=== PATIENT | female | born 1960 | race Caucasian/White ===

== ENCOUNTER 2016-11-03 15:27 | Emergency (ER) | payer BC ==
[2012-10-03 10:24] VITALS: BMI 38.8
== END 2016-11-03 20:13 | disposition home or self-care (01) ==
LOC: D.ER 15:27
DX: M54.10 Radiculopathy, site unspecified (principal); I73.9 Peripheral vascular disease, unspecified; I10 Essential (primary) hypertension; I25.10 Atherosclerotic heart disease of native coronary artery without angina pectoris; K21.9 Gastro-esophageal reflux disease without esophagitis; F17.200 Nicotine dependence, unspecified, uncomplicated

== ENCOUNTER 2019-06-22 16:26 | Emergency (ER) | payer BC ==
[~2019-06-22] VITALS: Ht 167.6 cm; Wt 79.8 kg
[2019-06-22 17:04] VITALS: Ht 167.6 cm; Wt 79.8 kg
[2019-06-22] MEDS ORDERED: ZANTAC300 MG PO (17:10)
[2019-06-22] MEDS ORDERED: PLAVIX75 MG PO (17:10)
[2019-06-22] MEDS ORDERED: LIPITOR40 MG PO (17:10)
[2019-06-22] MEDS ORDERED: TRAZODONE HCL150 MG PO (17:10)
[2019-06-22] MEDS ORDERED: METOPROLOL TART50 MG PO (17:10)
[2019-06-22] MEDS ORDERED: LISINOPRIL20 MG PO (17:11)
[2019-06-22 20:00] VITALS: BP 198/70
== END 2019-06-22 20:00 | disposition home or self-care (01) ==
LOC: D.ER 16:26
DX: S81.811A Laceration without foreign body, right lower leg, initial encounter (principal); X58.XXXA Exposure to other specified factors, initial encounter

== ENCOUNTER → 2019-12-15 09:13 | Outpatient (CLI) | payer BC ==
[2019-06-22 17:04] VITALS: BMI 38.8
--- NOTE | ~2019-12-15 | ST ---
PATIENT:NELIA HAGEN MEDICAL RECORD: [id number] SEX: F LOCATION:[facility] ORDER #: ADMISSION DATE: 12/15/19 AGE OF PATIENT: 59 REFERRING PHYSICIAN: INTERPRETING PHYSICIAN: RADHA BARAJAS MD DATE OF SERVICE: 12/15/2019 PROCEDURE: Nuclear stress test. INDICATION: Angina, coronary artery disease, previous bypass surgery, shortness of breath, hypertension, and hyperlipidemia. The patient was exercised on standard Lexiscan protocol with 33 mCi of sestamibi injected at peak stress, 11 mCi used previously for rest images. FINDINGS: Gated SPECT reveals a depressed ejection fraction at 47% with decreased thickening and brightening throughout the anterior segments. SPECT imaging Cardiolite was used as myocardial perfusion agent. There is a mixed perfusion defect anteriorly. This is partially fixed, partially reversible. However, there is reversible ischemia laterally as well as reversible ischemia inferiorly. This includes the basal, mid, apical, inferior segments, apical lateral, mid lateral, basal lateral segments. OVERALL IMPRESSION: This is a high risk abnormal nuclear stress test, mixed perfusion defect anteriorly with reversible ischemia inferiorly as well as laterally suggestive of hemodynamically significant multivessel coronary artery disease. TRANSINT:[id number] Voice Confirmation ID: [id number] DOCUMENT ID: [id number] RADHA BARAJAS MD CC: FRANKLIN HORTON MD [id number] DICTATION DATE: 12/16/19918 ENGLISH AS A SECOND LANGUAGE INSTRUCTOR: 12/17/19622 DEP CLI 12/15/19 [facility] [address] [place] [address]
[~2019-12-15 09:13] MED LIST: LIPITOR40 MG PO; LISINOPRIL20 MG PO; METOPROLOL TART50 MG PO; PLAVIX75 MG PO; TRAZODONE HCL150 MG PO; ZANTAC300 MG PO
== END | disposition home or self-care (01) ==
LOC: D.HCCARDIO 09:13
PROVIDERS: ATTEND Internal Medicine Interventional Cardiology
DX: I25.709 Atherosclerosis of coronary artery bypass graft(s), unspecified, with unspecified angina pectoris (principal); I70.213 Atherosclerosis of native arteries of extremities with intermittent claudication, bilateral legs; I73.9 Peripheral vascular disease, unspecified

== ENCOUNTER 2019-12-21 08:58 | Outpatient (CLI) | payer MEDICAID ==
[~2019-12-21] VITALS: Ht 167.6 cm; Wt 72.7 kg
--- NOTE | ~2019-12-21 | HEMODYNAMI ---
PATIENT:NELIA HAGEN MEDICAL RECORD: [id number] : 58 LOCATION:[facility] ADMISSION DATE: 12/21/19 Generatedon:12/21/201912:02 Patient name: NELIA HAGEN Patient #: [id number] : 1960 Date of study: 12/21/2019 Page: Of Hemodynamic Procedure Report Patient Data Patient Demographics Procedure consent was obtained First Name: NELIA Gender: Female Last Name: IHEU : 1960 Middle Initial: H Age: 59 year(s) Patient #: [id number] Race: SSN: [id number] Additional ID: [id number] Contact details [address]: [address] [place] [address] State: [place] City: [place] Zip code: [address] Admission Admission Data Admission Date: 12/21/2019 Admission Time: 8:58 Arrival Date: 12/21/2019 Arrival Time: 11:00 Admit Source: Other Insurance Payor: Private health insurance [facility] #: [phone] Height (in.): 65.75 BSA: 1.81 (m2) Height (cm.): 167 BMI: 25.82 (kg/m2) Weight (lbs.): 158.73 Weight (kg.): 72 Lab Results Lab Result Date: 12/21/2019 Lab Result Time: 0:00 Biochemistry Name Units Result Min Max BUN mg/dl 14 --(--*-)-- 7 18 Creatinine mg/dl 0.7 --(*---)-- 0.6 1.3 eGFR ml/min 90 --(*---)-- 90 120 NONAFRICAN CBC Name Units Result Min Max Hemoglobin g/dl 14 --(*---)-- 13.5 17.5 Procedure Procedure Types Cath Procedure Diagnostic Procedure LHC LHC w/Coronaries w/Grafts Sedation Charges Moderate Sedation up to 15 minutes Peripheral Cath Diagnostic Procedure Billboard Poster Peripheral Procedures AFRO (Diagnostic) Four Vessel Arteriogram Procedure Description Procedure Date Procedure Date: 12/21/2019 Procedure Start Time: 11:44 Procedure End Time: 11:57 Procedure Staff Name Function Héctor Jimenez MD Performing Physician Ayana Monsivais RT Monitor Josselyn Stevenson RT Scrub Liliya Andrea RN Metal Roaster Aide Contreras RN Metal Roaster Procedure Data Cath Procedure Fluoroscopy Diagnostic fluoroscopy Total fluoroscopy Time: 4.9 time: 4.9 min min Diagnostic fluoroscopy Total fluoroscopy dose: 406 dose: 406 mGy mGy Contrast Material Contrast Material Type Amount (ml) Isovue 300 129 Entry Location Entry Primary Successful Side Size Upsize Upsize Entry Closure Succes sful Closure Location (Fr) 1 (Fr) 2 (Fr) Remarks Device Remarks Femoral Right 5 Fr Exoseal artery Estimated blood loss: 5 ml Diagnostic catheters Device Type Used For End Catheter Placement MULTIPACK Pigtail 5 Fr Multi-vessel catheter Angiography MULTIPACK JL 4.0 5Fr Left Coronary catheter Angiography MULTIPACK 3DRC 5Fr Multi-vessel catheter Angiography DIAGNOSTIC AR2 MOD 5 Fr Multi-vessel catheter ([id number]) Angiography Procedure Complications No complications Procedure Medications Medication Administration Route Dosage Oxygen etCO2 Nasal cannula 2 l/min Lidocaine 2% added to field 20 Heparin Flush Bag added to field 2 bags (1000units/500ml NS) 0.9% NaCl I.V. 100 ml/hr Versed I.V. 1 mg Versed I.V. 1 mg Fentanyl I.V. 50 mcg Fentanyl I.V. 50 mcg Hemodynamics Rest BSA: 1.81 (m2) HGB: 14 (g/dl) O2 Consumption: Estimated: 169.58 (ml/min) O2 Cons umption indexed: Estimated:93.69 (ml/min/m) Heart Rate: 67 (bpm) Pressure Samples Time Site Value (mmHg) Purpose Heart Use Rate(bpm) 11:47 LV 100/4,7 Snapshot 66 Snapshots Pre Cath Intra NCS Post Cath Vital Signs Time Heart Resp SPO2 etCO2 NIBP (mmHg) Rhythm Pain Sedation Rate (ipm) (%) (mmHg) Status Level (bpm) 11:28:01 66 35 100 28.8 172/84(140) NSR 0 (11) 10(A) , No pain 11:32:23 66 16 99 36.3 137/71(114) NSR 0 (11) 10(A) , No pain 11:36:41 64 13 97 37.8 112/56(84) NSR 0 (11) 9(A) , No pain 11:40:52 63 13 97 37.9 96/55(82) NSR 0 (11) 9(A) , No pain 11:45:58 57 11 98 12.1 109/52(67) NSR 0 (11) 9(A) , No pain 11:50:10 55 13 98 23.4 109/48(78) NSR 0 (11) 9(A) , No pain 11:54:21 56 12 99 26.5 107/49(79) NSR 0 (11) 10(A) , No pain Medications Time Medication Route Dose Verified Delivered Reason Notes Eff ectiveness by by 11:26:53 Oxygen etCO2 2 Héctor Héctor used for Nasal l/min Barbara Jimenez MD procedure cannula 11:27:57 Lidocaine 2% added 20ml Héctor Héctor for local to vial Barbara Jimenez MD anesthetic field 11:28:02 Heparin Flush added 2 Héctor Héctor used for Bag to bags Barbara Jimenez MD procedure (1000units/500ml field NS) 11:28:36 0.9% NaCl I.V. 100 Héctor Liliya Per ml/hr Barbara Andrea physician RN 11:32:28 Versed I.V. 1 mg Héctor Noble for Barbara Contreras RN sedation 11:32:35 Fentanyl I.V. 50 Héctor Donovanie for mcg Barbara Contreras RN sedation 11:51:29 Versed I.V. 1 mg Héctorjudy Noble for Barbara Contreras RN sedation 11:51:35 Fentanyl I.V. 50 Héctor Noble for mcg Barbara Contreras RN sedation Procedure Log Time Note 11:20:40 Diagnostic Cath Status : Elective 11:23:20 Informed consent obtained and on chart 11:24:29 Admit Source: Other 11:24:31 Arrival Date: 12/21/2019 11:00:00 AM 11:24:41 ACC Patient presents with Stable Angina CCS Anginal Class 2--Slight limitation of ordinary activity. 11:24:44 ACCPatient has been prescribed/administered the following anti-anginal medication within the last 2 weeks: None 11:24:50 Procedure Status Elective Heart Cath (OP). 11:24:55 Josselyn Stevenson RT(R) sent for patient. Start room use. 11:24:56 Time tracking: Regular hours (M-F 7:00 - 5:00) 11:25:03 Plan of Care:Hemodynamics will remain stable., Cardiac rhythm will remain stable., Comfort level will be maintained., Respiratory function will remain adequate., Patient/ family verbilizes understanding of procedure., Procedure tolerated without complication., Recovers from procedure without complications.. 11:25:18 Insurance Payor : Private health insurance 11:25:48 Patient Height : 65.75 inches 11::53 Patient Weight : 158.73 lbs 11::34 Lab Result : eGFR NONAFRICAN 90 ml/min 11::34 Lab Result : Hemoglobin 14 g/dl 11::34 Lab Result : BUN 14 mg/dl 11::34 Lab Result : Creatinine 0.7 mg/dl 11::44 Vital chart was started 11:26:45 Patient received from Pre/Post Procedure Room to [facility] 2 Alert and oriented. Tansferred to table in Supine position. 11:26:46 Warm blankets applied, and gigi hugger turned on for patient comfort. 11:26:46 Correct patient and procedure confirmed by team. 11:26:47 ECG and BP/O2 sat monitors applied to patient. 11::49 Baseline sample Acquired. 11::53 Oxygen 2 l/min etCO2 Nasal cannula was administered by Héctor Jimenez MD; used for procedure; Verbal order read back and verified. 11::55 Rhythm: sinus rhythm 11:26:57 Full Disclosure recording started 11::01 H&P Date Dictated: 12/21/2019 Within 30 days and on chart., H&P Addendum completed by physician on day of procedure. (MUST COMPLETE FOR ALL OUTPATIENTS). 11:27:02 Pre-procedure instructions explained to patient. 11:27:03 Pre-op teaching completed and patient verbalized understanding. 11:27:05 Family in patients room. 11:27:06 Patient NPO since Midnight. 11:27:08 Is the patient allergic to Iodine/contrast media? No. 11:27:10 Was the patient premedicated? Yes 11:27:11 Is patient on blood thinner?Yes 11:27:39 ACC The patient was administered the following blood thiners within the last 24 hours: ACCPlavix 11:27:41 Patient diabetic? Yes. 11:27:43 If diabetic: On Metformin? Yes 11:27:50 If on Metformin: Last Dose? 12/12/2019 11:27:55 Previous problem with sedation/anesthesia? No ? 11:27:57 Lidocaine 2% 20ml vial added to field was administered by Héctor Jimenez MD; for local anesthetic; Verbal order read back and verified. 11:27:57 Snore? Yes 11:27:57 Sleep apnea? Yes 11:27:58 Deviated septum? No 11:27:59 Opens mouth fully? Yes 11:27:59 Sticks out tongue? Yes 11:28:02 Heparin Flush Bag (1000units/500ml NS) 2 bags added to field was administered by Héctor Jimenez MD; used for procedure; Verbal order read back and verified. 11:28:08 Airway obstruction? No ? 11:28:17 Dentures? No ? 11:28:21 Pre procedure: right dorsailis pedis pulse 2+ Normal; easily identifiable; not easily obliterated 11:28:25 Pre procedure: left dorsailis pedis pulse 2+ Normal; easily identifiable; not easily obliterated 11:28:27 Patient pain scale 0/10 ?. 11:28:32 IV patent on arrival in left forearm with 0.9% NaCl at [facility]. 11:28:35 Lab results completed and on chart. 11:28:36 0.9% NaCl 100 ml/hr I.V. was administered by Liliya Andrea RN; Per physician; Verbal order read back and verified. 11:31:36 Risk of Mortality: 0.1 11:31:39 Risk of blood transfusion: 0.6 11:31:42 Risk of DAHLIA: 0.1 11:31:49 Bilateral groins area was prepped with chlora-prep and draped in sterile fashion 11::50 Alarms reviewed by R. N. 11:31:50 Sharps counted by scrub and verified by R.N. 11:31:51 Physician arrived 11:31:52 --------ALL STOP TIME OUT------ 11::52 Final Timeout: patient, procedure, and site verified with staff and physician. All members of the team are in agreement. 11:31:54 Bilateral groins site verified by team. 11:31:58 Fire Safety Assessment: A--An alcohol-based skin anteseptic being used preoperatively., C--Open oxygen or nitrous oxide is being used., D--An ESU, laser, or fiber-optic light is being used. 11:32:01 Physical assessment completed. ASA score P 2 - A patient with mild systemic disease as per Héctor Jimenez MD. 11:32:28 Versed 1 mg I.V. was administered by Aide Contreras RN; for sedation; Verbal order read back and verified. 11:32:35 Fentanyl 50 mcg I.V. was administered by Aide Contreras RN; for sedation; Verbal order read back and verified. 11:32:44 1) 90+ Normal kidney functon but urine findings or structural abnormalities or genetic trait point to kidney disease. 11:32:47 Maximum allowable contrast dose (3.7 X eGFR X 0.75)249 ml. 11:32:51 Sedation plan: IV Moderate Sedation Medication:Versed, Fentanyl 11:33:00 Use device set Femoral Dx 11:33:02 ACIST Syringe (43934) opened to sterile field. 11:33:02 Bag Decanter (2002S) opened to sterile field. 11:33:02 Medline Cath Pack ([id number]) opened to sterile field. 11:33:04 ACIST Hand Control (26565) opened to sterile field. 11:33:04 ACIST Manifold (72292) opened to sterile field. 11:33:04 DIAGNOSTIC Multipack 5Fr catheter set ([id number]) opened to sterile field. 11:33:05 Tegaderm 4 x 4 (1626W) opened to sterile field. 11:33:06 SHEATH 5FR Peach Bottom (JMV082) opened to sterile field. 11:33:06 EMERALD Guide Wire (668-551) opened to sterile field. 11:41:36 Procedure started. 11:44:04 Local anesthetic to right femoral artery with Lidocaine 2% by Héctor Jimenez MD.INITIAL ACCESS ONLY 11:44:27 A 5 Fr sheath was inserted into the Right Femoral artery 11:45:39 Zero performed for pressure channel P1 11:46:28 A MULTIPACK Pigtail 5 Fr catheter was advanced over the wire and used for Multi-vessel Angiography. 11:47:15 LV hemodynamics recorded. 11:47:17 LV gram done using ANGELES 11:47:19 Injector settings: Ml/sec: 5, Volume: 15, 11:47:26 EF : 60 % 11:47:36 Abdominal angiogram w/ runoff was performed. 11:47:42 Injector settings: Ml/sec: 10, Volume: 20, 11:49:08 Catheter removed. 11:49:17 A MULTIPACK JL 4.0 5Fr catheter was advanced over the wire and used for Left Coronary Angiography. 11:49:34 LCA angiography performed. 11:49:37 Injector settings: Ml/sec: 3, Volume: 6, 11:50:03 Catheter removed. 11:50:10 A MULTIPACK 3DRC 5Fr catheter was advanced over the wire and used for Multi-vessel Angiography. 11:50:44 Bilateral carotid angiography performed. 11:51:29 Versed 1 mg I.V. was administered by Aide Contreras RN; for sedation; Verbal order read back and verified. 11:51:35 Fentanyl 50 mcg I.V. was administered by Aide Contreras RN; for sedation; Verbal order read back and verified. 11:52:05 AMES to LAD angiography performed. 11:52:56 RCA angiography performed. 11:52:59 Injector settings: Ml/sec: 3, Volume: 6, 11:53:07 Catheter removed. 11:53:17 A DIAGNOSTIC AR2 MOD 5 Fr catheter ([id number]) was advanced over the wire and used for Multi-vessel Angiography. 11:54:32 SVG to Circ angiography performed. 11:55:10 Catheter removed. 11:55:15 EXOSEAL 5Fr (EX500) opened to sterile field. 11:55:40 Sheath removed intact; hemostasis achieved with Exoseal to the Right Femoral artery. 11:55:42 Procedure ended.(Physican Out) 11:56:01 Fluoroscopy time 04.90 minutes. 11:56:24 Fluoroscopy dose: 406 mGy 11:56:24 Flurop Dose total: 406 11:56:28 Dose Area Product 18894 mGy/cm. 11:56:34 Contrast amount:Isovue 300 129ml. 11:56:37 Maximum allowable dose exceeded? No. 11:56:39 Insertion/operative site no bleeding no hematoma. 11:56:41 Post-op/insertion site Right Femoral artery dressed using a 4 x 4 and Tegaderm. 11:56:44 Post right femoral artery:stable 11:56:45 Post Procedure Pulses reassessed and unchanged 11:56:48 Post procedure rhythm: unchanged. 11:56:52 Estimated blood loss: 5 ml 11:56:54 Post procedure instruction explained to patient.Patient verbalizes understanding. 11:56:54 Patient needs reinforcement of post procedure teaching. 11:57:21 Procedure type changed to Cath procedure, Diagnostic procedure, LHC, LHC w/Coronaries w/Grafts, Sedation Charges, Moderate Sedation up to 15 minutes, Peripheral Cath Diagnostic Procedure, Billboard Poster Peripheral Procedures, AFRO (Diagnostic), Four Vessel Arteriogram 11:57:22 Procedure and supply charges have been captured, reviewed, submitted and are correct. 11:57:27 Procedure Complication : No complications 11:57:30 Vital chart was stopped 11:57:35 [facility] Findings: MVD- MD will discuss options w/ pt 11:57:36 Operative report dictated upon procedure completion. 11:57:37 See physician's report for complete and final results. 11:57:41 Report given to Pre/Post Procedure Room. 11:57:43 Patient transfered to Pre/Post Procedure Room with Stretcher. 11:57:47 Procedure ended. 11:57:47 Full Disclosure recording stopped 11:57:58 End room use (Document Last) Device Usage Item Name Manufacture Quantity Catalog Hospital Part Current Minimal L ot# / Number Charge Number Stock Stock Serial# Code ACIST Acist 1 73570 666643 991229 322028 20 Syringe Medical (01602) Systems Inc Bag Microtek 1 138558 27503 491706 5 Decanter Medical Inc. () Medline Medline 1 [id number] 808867 95970 321884 5 Cath Pack ([id number]) ACIST Hand Acist 1 75251 008308 429386 121304 5 Control Medical (28671) Systems Inc ACIST Acist 1 70799 054180 725947 775941 5 Manifold Medical (28732) Systems Inc DIAGNOSTIC Cardinal 1 UY2186 784942 22402 501907 30 [facility] 5Fr catheter set (GU6009) Tegaderm 4 3M 1 1626W 886579 656589 071242 5 x 4 (1626W) SHEATH 5FR Terumo 1 XFV848 310219 113152 684833 5 Peach Bottom (WYE518) EMERALD Cardinal 1 293-121 656425 276772 887833 5 Guide Wire Health (505-868) MULTIPACK Cardinal 1 765019 5 Pigtail 5 Health Fr catheter MULTIPACK Cardinal 1 005537 5 JL 4.0 5Fr Health catheter MULTIPACK Cardinal 1 028409 5 3DRC 5Fr Health catheter DIAGNOSTIC Cardinal 1 [id number] 495526 902063 278848 20 AR2 MOD 5 Health Fr catheter (923202H) EXOSEAL 5Fr Cardinal 1 EX500 795514 782848 521363 10 (EX500) Health Signature Audit [place] Stage Time Signature Unsigned Intra-Procedure 12/21/2019 Ayana Monsivais 12:01:19 PM RT(R) Intra-Procedure 12/21/2019 Aide Contreras RN 12:01:55 PM Intra-Procedure 12/21/2019 Héctor Jimenez 12:02:20 PM Signatures Performing Physician : Signature : Héctor Jimenez MD Date : Time : Monitor : Ayana Monsivais RT Signature : Date : Time : [address] [address]
--- NOTE | ~2019-12-21 | OP ---
PATIENT NAME: NELIA HAGEN MEDICAL RECORD: [id number] :58 LOCATION:[facility] ADMISSION DATE: SURGEON: RADHA BARAJAS MD DATE OF OPERATION: 12/21/2019 DATE OF SERVICE: 12/21/2019 PROCEDURES: 1. Left heart catheterization. 2. Selective coronary angiography. 3. Left ventriculogram. 4. Vein graft angiography. 5. AMES angiography. 6. Four-vessel carotid and vertebral angiography. 7. Aortofemoral runoff. 8. Abdominal aortography. PROCEDURE IN DETAIL: After informed consent was obtained and after a detailed description of risks, benefits as well as alternative therapies, the patient elected proceed with angiogram and heart catheterization. The right femoral area was prepped and draped in normal sterile fashion. Right femoral artery was cannulated via modified Seldinger technique with placement of 6-Estonian sheath. All catheters exchanged through this sheath. FINDINGS: Left ventriculogram was performed in standard 30-degree ANGELES view, reveals good cardiac wall motion, ejection fraction is 60%. SELECTIVE CORONARY ANGIOGRAPHY: 1. Left main is closed. 2. Right coronary artery is closed. 3. AMES to the LAD is widely patent. Distal LAD is widely patent. 4. Vein graft to the circumflex territory is patent. Distal circumflex is widely patent. 5. Vein graft to the RCA is closed. 6. Four-vessel carotid vertebral angiography. There was subselection of each subclavian as well as the left carotid. FINDINGS: Right side common internal and external carotids have mild plaquing. There is evidence of a previous carotid endarterectomy. This appears to be widely patent. The vertebral artery is as well widely patent. Left system; 1. The common carotid is widely patent. External carotid is widely patent. The internal carotid has 95-99% stenosis. 2. Vertebral artery is patent. Abdominal aortography was performed. The catheter was pulled down for aortofemoral runoff. Abdominal angiography reveals no significant abdominal aortic disease, no dissection or aneurysmal formation. RIGHT LEG: A. Iliac: The common internal and external iliacs are widely patent. B. Femoral system: The common and deep femoral are widely patent. Superficial femoral was totally occluded. There is a femoral popliteal bypass graft that is widely patent. Below the knee arteries are patent; however, diffusely diseased. OPERATIVE REPORT [id number] NELIA HAGEN LEFT LEG: A. Iliac: The common internal and external iliacs are widely patent. B. Femoral system: The common and deep femoral are widely patent. Superficial femoral was totally occluded. There is a femoral popliteal bypass graft that is widely patent. Below the knee arteries are patent; however, diffusely diseased. OVERALL IMPRESSION: 1. 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 2. Carotid endarterectomy on the right appears patent. The left system has critical stenosis of the left carotid. 3. Wide patency of femoral popliteal bypass grafts bilaterally with diffuse disease below this bilaterally. TRANSINT:[id number] Voice Confirmation ID: [id number] DOCUMENT ID: [id number] RADHA BARAJAS MD CC: [id number] DICTATION DATE: 12/21/19 1204 VIDEO GAME ENGINEER: 12/21/19 1723 DEP CLI 12/21/19 [facility] [address] [place] [address]
[2019-12-21] MEDS ORDERED: RANITIDINE HCL150 M1 PO (09:28)
[2019-12-21] MEDS ORDERED: GLUCOPHAGE500 MG PO (09:30)
[2019-12-21] MEDS ORDERED: CRESTOR40 MG PO (09:31)
[2019-12-21] MEDS ORDERED: ASPIRIN325 MG PO (09:31)
[2019-12-21 10:11] LABS: BASOPHILS 0.2 % (0-2); EOSINOPHILS 2.1 % (0-7); HEMATOCRIT 41.9 % (36.0-48.0); IMMATURE GRANULOCYTES 0.1 % (0-5); LYMPHOCYTES 28.6 % (15-50); MCH 29.8 pg (26.0-34.0); MCHC 33.4 g/dL (31.0-37.0); MCV 89.1 fL (80.0-100.0); MEAN PLATELET VOLUME 10.8 fL (7.4-10.4); MONOCYTES 6.3 % (2-11); NEUTROPHILS 62.7 % (40-80); PLATELET COUNT 227 10x3/uL (130-400); RDW 14.7 % (11.5-14.5); WBC 8.3 10x3/uL (4.8-10.8)
[2019-12-21 10:14] VITALS: BP 171/69; Ht 167.6 cm; Wt 72.7 kg
[2019-12-21 10:16] LABS: CALC OSMOLALITY 279 mosm/kg (275-300); CALCIUM 9.6 mg/dL (8.5-10.1); CARBON DIOXIDE 29.5 mmol/L (21.0-32.0); CHLORIDE - SERUM 104 mmol/L (98-107); CREATININE - SERUM 0.7 mg/dL (0.6-1.3); GLUCOSE 97 mg/dL (74-106); POTASSIUM - SERUM 4.3 mmol/L (3.5-5.1); SODIUM 140 mmol/L (136-145); UREA NITROGEN 14 mg/dL (7-18); eGFR NON AFRICAN AMERICAN 90 mL/min (90-120)
--- NOTE | 2019-12-21 12:08 | NUR ---
PT ARRIVED BY STRETCHER. PLACED ON MONITORS. ASSESSMENT COMPLETED. FAMILY AT BEDSIDE. CALL LIGHT WITHIN REACH.
--- NOTE | 2019-12-21 12:27 | NUR ---
RIGHT GROIN DRESSING C/D/I. NO S/S OF HEMATOMA NOTED. CALL LIGHT WITHIN REACH. FAMILY AT BEDSIDE. DR. BARAJAS ROUNDED AND SPOKE WITH PT AND PT'S FAMILY. THEY VOICED UNDERSTANDING. SPOKE WITH ARIANE SEQUEIRA AND NOTIFIED HER OF CV CONSULT.
--- NOTE | 2019-12-21 12:53 | NUR ---
R GROIN SOFT, NO S/S BLEEDING OR HEMATOMA. APPEARS TO HAVE A SKIN TEAR TO SKIN FOLDOF GROIN. PPP. FAMILY AT BEDSIDE. BP 168/70, SR OCC PVC RATE 60, RR 18, 97% SAT.
--- NOTE | 2019-12-21 13:04 | NUR ---
HOB RAISED FOR PT COMFORT. GROIN REMAINS CDI, SOFT. NO S/S BLEEDING OR HEMATOMA.
--- NOTE | 2019-12-21 13:30 | NUR ---
R GROIN SOFT, NO S/S BLEEDING OR HEMATOMA. IV DC TIP INTACT, MONITORING DC. PT DRESSING WITH FAMILY'S HELP.
--- NOTE | 2019-12-21 14:05 | NUR ---
DISCHARGE INSTRUCTIONS REVIEWED W PT AND FAMILY. AWAITING DR AMBROSIO TO EVAL L CAROTID STENOSIS PER DR BARAJAS.
--- NOTE | 2019-12-21 14:30 | NUR ---
DR VEGA AND MARQUES MATA RN HERE FOR [facility]. SPOKE W PT, DR VEGA STATED L CAROTID STENOSIS NOT URGENT AND FABBY WILL SET UP APPT WITH DR AMBROSIO AND CALL PT/FAMILY. ALL VERBALIZE UNDERSTANDING. DC HOME VIA WHEELCHAIR TO PRIVATE CAR. PT HAS ALL BELONGINGS.
== END 2019-12-21 14:30 | disposition home or self-care (01) ==
LOC: D.CATH 08:58
PROVIDERS: ATTEND Internal Medicine Interventional Cardiology
DX: R07.9 Chest pain, unspecified (principal); I10 Essential (primary) hypertension; E78.5 Hyperlipidemia, unspecified; F17.210 Nicotine dependence, cigarettes, uncomplicated; I25.119 Atherosclerotic heart disease of native coronary artery with unspecified angina pectoris; I65.29 Occlusion and stenosis of unspecified carotid artery; I70.213 Atherosclerosis of native arteries of extremities with intermittent claudication, bilateral legs; R94.30 Abnormal result of cardiovascular function study, unspecified

== ENCOUNTER → 2020-02-22 15:14 | Outpatient (CLI) | payer MEDICAID ==
[2019-12-21 10:14] VITALS: BMI 25.8
[~2020-02-22 15:14] MED LIST changes: +ASPIRIN325 MG PO; +CATAPRES0.1 MG PO; +CRESTOR40 MG PO; +GLUCOPHAGE500 MG PO; +NITRO-DUR0.6 MG TRANSDERM; +RANITIDINE HCL150 M1 PO
== END | disposition home or self-care (01) ==
LOC: D.RAD 15:14
PROVIDERS: ATTEND Internal Medicine Cardiovascular Disease
DX: I65.22 Occlusion and stenosis of left carotid artery (principal)

== ENCOUNTER 2020-02-22 15:30 | Inpatient (IN) | payer MEDICAID ==
[~2020-02-22] VITALS: Ht 167.6 cm; Wt 83.2 kg
[~2020-02-22 15:30] MED LIST changes: -CATAPRES0.1 MG PO; -NITRO-DUR0.6 MG TRANSDERM
[2020-02-22 15:44] LABS: HEMOGLOBIN 13.5 g/dL (12-16); MCH 28.9 pg (26.0-34.0); MCHC 31.4 g/dL (31.0-37.0); MCV 92.1 fL (80.0-100.0); MEAN PLATELET VOLUME 11.1 fL (7.4-10.4); RBC 4.67 10x6/uL (4.00-5.40); RDW 13.8 % (11.5-14.5); WBC 8.2 10x3/uL (4.8-10.8)
[2020-02-22 15:59] LABS: BILIRUBIN NEGATIVE (NEGATIVE); GLUCOSE NEGATIVE (NEGATIVE); KETONE NEGATIVE (NEGATIVE); NITRITE NEGATIVE (NEGATIVE); UROBILINOGEN NORMAL (NORMAL)
[2020-02-22 16:04] LABS: APTT 31.2 SECONDS (22.8-39.4); INR 0.95 (0.85-1.17); PROTIME 12.7 SECONDS (11.6-15.0)
[2020-02-22 16:15] LABS: ALBUMIN 4.1 g/dL (3.4-5.0); ALKALINE PHOSPHATASE 67 U/L (30-120); ALT (SGPT) 22 U/L (10-68); CALC OSMOLALITY 278 mosm/kg (275-300); CALCIUM 9.4 mg/dL (8.5-10.1); CARBON DIOXIDE 28.7 mmol/L (21.0-32.0); CHLORIDE - SERUM 102 mmol/L (98-107); CREATININE - SERUM 0.5 mg/dL (0.6-1.3); GLUCOSE 91 mg/dL (74-106); POTASSIUM - SERUM 4.5 mmol/L (3.5-5.1); PROTEIN - SERUM 7.7 g/dL (6.4-8.2); SODIUM 139 mmol/L (136-145); UREA NITROGEN 15 mg/dL (7-18); eGFR NON AFRICAN AMERICAN > 90 mL/min (90-120)
[2020-02-23] VITALS (35 sets, daily range): BP systolic 108–167; BP diastolic 49–65; Ht 167.6 cm; Wt 83.2 kg
--- NOTE | 2020-02-23 17:15 | NUR ---
ARRIVED TO UNIT AT 1700 VIA BED. CONNECTED TO LAMP TESTER AND INSPECTOR. LEFT ANTERIOR NECK INCISION WITH DRESSING C/D/I. KRYSTLE CHEST CHRISTIAN DRAIN IN PLACE WITH BLOODY DRAINAGE NOTED. ON 15L O2 VIA SYMPLE MASK. R-SUB CVL WITH PLASMOLYTE, NITROGLYCERIN AND CLEVIPREX. SEE IV FLOWSHEET FOR RATES. LEFT RADIAL NITHIN IN PLACE. HARRELL CATHETER WIHT YELLOW URINE NOTED. TEDS AND SCD'S ON BLE. SAFETY MEASURES IN PLACE. WILL CONTINUE TO MONITOR.
--- NOTE | 2020-02-23 19:00 | NUR ---
SHIFT ASSESSMENT COMPLETED. PT CARE ASSUMED. MONITORS ON AND WORKING, PT AWAKE AND ALERT, HARRELL CATH STAT LOCKED IN PLACE, LT RADIAL ART LINE WITH WRIST PROTECTOR IN PLACE, ICE PACK PLACED ON LEFT NECK, CHRISTIAN DRAIN TO LEFT CHEST DRESSING CDI. SEE FLOW SHEET FOR FURTHER DETAILS. CALL LIGHT WITHIN REACH. WILL CONTINUE TO OBSERVE.
--- NOTE | 2020-02-23 21:00 | NUR ---
PT AWAKE AND ALERT, PT DENIES ANY COMPLAINT OF PAIN OR DISCOMFORT AT THIS TIME, ICE PACK TO LEFT NECK, MONITORS ON AND WORKING, TITRATING NITRO AND CLEVIPREX PER ORDERS TO KEEP BP WITHIN TARGET RANGE. CALL LIGHT WITHIN REACH, WILL CONTINUE TO OBSERVE.
--- NOTE | 2020-02-23 22:00 | NUR ---
REC'D PHONE CALLS FROM NIECE AND SON, BOTH GAVE PASSCODES AND UPDATES WERE PROVIDED.
--- NOTE | 2020-02-23 23:00 | NUR ---
PT LYING IN BED RESTING. MONITORS ON AND WORKING, TITRATING NITRO AND CLEVIPREX TO KEEP BP BETWEEN 90-140 SYSTOLIC, NOT ABLE TO GO DOWN ON EITHER DRIP AT THIS TIME, SEE FLOW SHEET FOR FURTHER DETAILS. WILL CONTINUE TO OBSERVE.
[2020-02-24] VITALS (91 sets, daily range): BP systolic 112–161; BP diastolic 50–77
--- NOTE | 2020-02-24 01:00 | NUR ---
NO CHANGES, CALL LIGHT WITHIN REACH. WILL CONTINUE TO OBSERVE.
--- NOTE | 2020-02-24 02:00 | NUR ---
PT TURNED AND REPOSITIONED FOR COMFORT. IS DONE EVERY HR, PT TOLERATES WELL. CALL LIGHT WITHIN REACH, PT DENIES ANY COMPLAINT OF PAIN OR DISCOMFORT, UNABLE TO WEAN DRIPS AT THIS TIME BLOOD PRESSURE REMAINS IN THE HIGH 130S. WILL CONTINUE TO OBSERVE.
--- NOTE | 2020-02-24 03:00 | NUR ---
PT LYING IN BED RESTING. MONITORS ON AND WORKING, VITALS STABLE, CALL LIGHT WITHIN REACH, SEE FLOW SHEET FOR FURTHER DETAILS. WILL CONTINUE TO OBSERVE.
--- NOTE | 2020-02-24 05:00 | NUR ---
PT BP REMAINS IN THE 130'S SYSTOLIC PER ART LINE. NITRO AND CLEVIPREX INFUSING. PT AWAKE AND ALERT, PT DENIES ANY COMPLAINT OF PAIN OR DISCOMFORT. PT TURNED AND REPOSITIONED FOR COMFORT, MONITORS ON AND WORKING, CALL LIGHT WITHIN REACH, WILL CONTINUE TO OBSERVE.
--- NOTE | 2020-02-24 06:45 | NUR ---
PT HEART RATE INCREASED TO 115 ON MONITOR AT SHIFT CHANGE, PT WAS ON HOME MEDS LOPRESSOR AND LISINOPRIL WHICH HAS NOT BEEN RESTARTED YET. REVIEWED WITH ONCOMING NURSE AT THIS TIME AND MD WAS PAGED. PT AWAKE AND ALERT, DENIES ANY COMPLAINT OF PAIN OR DISCOMFORT, WILL CONTINUE TO OBSERVE AND WAIT FOR FURTHER ORDERS.
--- NOTE | 2020-02-24 07:35 | NUR ---
AM ASSESSMENT COMPLETED. HR IN THE 120'S WAS GIVEN IN REPORT THAT STARTED INCREASING ABOUT 6:30 OR 6:45. DR. AMBROSIO NOTIFIED. NEW ORDERS OF LOPRESSOR ORDERED. PT DENIES PAIN PT POSITIONED FOR COMFORT. WILL CONTINUE TO MONITOR.
--- NOTE | 2020-02-24 10:40 | NUR ---
HARRELL AND A-LINE REMOVED PER ORDERS FROM . PT AT BEDSIDE PT UP TO CHAIR POSITIONED FOR COMFORT. WEANING MEDS.
--- NOTE | 2020-02-24 19:00 | NUR ---
REPORT REC'D FROM CHEY MURPHY, PT CARE ASSUMED. ASSESSMENT COMPLETED PER FLOWSHEETS.
--- NOTE | 2020-02-24 20:15 | NUR ---
SON CALLED FOR UPDATE. UPDATED AND QUESTIONS ANSWERED.
--- NOTE | 2020-02-24 20:20 | NUR ---
ASSISSTED TO BATHROOM. PT VOIDS WITHOUT DIFFIC. AVILA WELL. BACK TO BED. REPOSIIONED SELF FOR COMFORT. HOB UP. CALL LIGHT AND BEDSIDE TABLE WITHIN REACH. CPOC.
--- NOTE | 2020-02-24 20:50 | NUR ---
ASSESSMENT COMPLETED PER FLOWSHEETS. PT ALERT AND ORIENTED X4, SITTING IN CHAIR, COMPLAINTS DICOMFORT TO NECK SITE. HR 82BPM ON CM, LUNG SOUNDS CTA TO UPPER BILAT.WITH DIMINISSHED TO LLB, UNLABORED. PPP. CALLIGHT IN REACH. CONT TO MONITOR.
--- NOTE | 2020-02-24 23:00 | NUR ---
REASSESSMENT COMPLETED. SEE FLOWSHEETS FOR ALL FINDINGS. NO SIGNS OF DISTRESS NOTED. CPOC.
[2020-02-25] VITALS (51 sets, daily range): BP systolic 75–199; BP diastolic 41–95
--- NOTE | 2020-02-25 03:00 | NUR ---
REASSESSMENT COMPLETED. SEE FLOWSHEETS FOR ALL FINDINGS. NO ACUTE CHANGES NOTED ON PT'S STATUS.VSS CPOC.
--- NOTE | 2020-02-25 04:15 | NUR ---
I&O COMPLETED TO CHART.
--- NOTE | 2020-02-25 11:51 | OP ---
PATIENT NAME: NELIA HAGEN MEDICAL RECORD: [id number] :58 LOCATION:[facility].CV06 ADMISSION DATE:02/23/20 SURGEON: JAMIE AMBROSIO MD DATE OF OPERATION: 02/23/2020 SURGEON: Jamie Ambrosio MD ANESTHESIA: General endotracheal, Dr. Rodriguez. OPERATION PERFORMED: Left carotid endarterectomy with patch angioplasty. PREOPERATIVE DIAGNOSIS: Severe left internal carotid artery stenosis. POSTOPERATIVE DIAGNOSIS: Severe left internal carotid artery stenosis. INDICATION FOR OPERATION: Severe left internal carotid artery stenosis. FINDINGS AT OPERATION: Severe left internal carotid artery stenosis. There were no EEG changes with clamping or unclamping of the carotid artery. ESTIMATED BLOOD LOSS: Less than 50 mL. DESCRIPTION OF PROCEDURE: After informed consent, adequate preoperative medication evaluation, the patient was brought to the operating room, placed on the table in the supine position. After induction of general endotracheal anesthesia and application of appropriate monitoring devices, the left neck and chest were prepped and draped in sterile field, utilizing Betadine scrub, alcohol, and Betadine solution. Betadine-impregnated drape was also used. An oblique incision was made in the skin crease. Dissection carried down the fascia. Hemostasis maintained with electrocautery. Facial vein was identified and divided. Utilizing sharp dissection, the common carotid, internal and external carotid arteries were dissected free of surrounding structures, protecting the neurological structures. The patient was given a calculated dose of heparin, after 3 minutes, clamps were applied. After 2 minutes, no EEG change. The arteriotomy was made and extended with Rivas scissors. Artery underwent endarterectomy sharply. Artery underwent extensive debridement and irrigation. Utilizing a CorMatrix vascular patch and running 7-0 Prolene suture, the arteriotomy was closed with patch angioplasty technique. All maneuvers to remove trapped air were performed. The clamps removed sequentially. There were no EEG changes. The patient was given a calculated dose of protamine to reverse the heparin. Hemostasis was achieved. A #7 Dirk-Beyer drain was left in the depths of the wound and brought out through the base of the neck. Neck was again irrigated. Instrument count and sponge count were correct times 2. Neck was closed in layers utilizing 3-0 Vicryl on the platysma, 5-0 subcuticular Monocryl on the skin. Sterile dressings were applied. The patient tolerated the procedure well and was transferred to CV ICU in satisfactory condition. TRANSINT:[id number] Voice Confirmation ID: [id number] DOCUMENT ID: [id number] OPERATIVE REPORT [id number] NELIA HAGEN EDWARD MD at 1151 CC: [id number] DICTATION DATE: 02/23/20 1700 CERTIFIED ORTHOTIST PRACTICE MANAGER: 02/23/20 1853 ADM IN [id number] [place] [address]
--- NOTE | 2020-02-25 15:44 | MORECARE ---
CASE MANAGEMENT DISCHARGE SUMMARY PATIENT: NELIA HAGEN UNIT: [id number] ADM DATE: 02/23/20 AGE: 59 : 58 SEX: F ROOM/BED: [facility] AUTHOR: LIZETH HERNANDEZ PHYSICIAN: REFERRING PHYSICIAN: JAMIE AMBROSIO MD DATE OF SERVICE: 02/25/20 Discharge Plan Patient Name: NELIA HAGEN [facility] [facility] 1960 Planned Disposition: Home Anticipated Discharge Date: Discharge Date: Expected LOS: Initial Reviewer: [email or web address] Initial Review Date: 02/24/2020 Generated: 02/25/20 4:44 pm DCPIA - Discharge Planning Initial Assessment Updated by [email or web address]: Carmen Sheppard on 02/25/20 3:43 pm * Is the patient Alert and Oriented? Yes * How many steps to enter\exit or inside your home? * PCP CLAUDIA HORTON * Pharmacy [facility] * Preadmission Environment Home Alone * ADLs Independent * Equipment None * List name and contact numbers for known caregivers / representatives who currently or will assist patient after discharge: CELIA LAWSON [facility] [phone] * Verbal permission to speak to the caregivers and representatives has been obtained from the patient. Yes * Community resources currently utilized None * Additional services required to return to the preadmission environment? No * Can the patient safely return to the preadmission environment? Yes * Has this patient been hospitalized within the prior 30 days at any hospital? No Patient Name: NELIA HAGEN Page 20035 at 1544 All edits/amendments must be made on the electronic document DICTATION DATE: 02/25/20 1544 TELLERS SUPERVISOR: MOISE 02/25/20 1544 RPT#: [id number] DC DATE: STATUS: ADM IN [facility] [address] [place] [address] END OF REPORT
--- NOTE | 2020-02-25 15:56 | MORECARE ---
CASE MANAGEMENT DISCHARGE SUMMARY PATIENT: NELIA HAGEN UNIT: [id number] ADM DATE: 02/23/20 AGE: 59 : 58 SEX: F [facility] AUTHOR: MARY,DOC PHYSICIAN: REFERRING PHYSICIAN: JAMIE AMBROSIO MD DATE OF SERVICE: 02/25/20 Discharge Plan Patient Name: NELIA HAGEN Facility: [facility]:[place] : 1960 Planned Disposition: Home Anticipated Discharge Date: Discharge Date: Expected LOS: Initial Reviewer: [email or web address] Initial Review Date: 02/24/2020 Generated: 02/25/20 4:55 pm Comments DCP- Discharge Planning Updated by [email or web address]: Carmen Sheppard on 02/25/20 2:[address] LATE ENTRY 02/24/20 Patient Name: NELIA HAGEN Admission Status: Elective Accout number: [id number] Admission Date: 02-23-2020 : 1960 Admission Diagnosis:OCCLUSION AND STENOSIS OF LEFT CAROTID ARTERY Attending: JAMIE AMBROSIO Current LOS: 2 Anticipated DC Date: Planned Disposition: Home Primary Insurance: [place] [employer] [place] Discharge Planning Comments: CM met with patient at bedside about discharge planning /needs. Patient states she lives alone. Patient states she plans to discharge to her home. States she will have family transport her home upon discharge. Denies need for home health or other community resource needs. States home environment is safe. Denies any discharge needs or concerns at this time. CM will continue to follow and assist as needed with discharge planning / needs. Terrazzo Tile Setter: Carmen Sheppard DCPIA - Discharge Planning Initial Assessment Updated by [email or web address]: Carmen Sheppard on 02/25/20 3:43 pm * Is the patient Alert and Oriented? Yes * How many steps to enter\exit or inside your home? * PCP CLAUDIA HORTON * Pharmacy [facility] * Preadmission Environment Home Alone * ADLs Independent * Equipment None * List name and contact numbers for known caregivers / representatives who currently or will assist patient after discharge: CELIA GARCIA - [phone] * Verbal permission to speak to the caregivers and representatives has been obtained from the patient. Yes * Community resources currently utilized None * Additional services required to return to the preadmission environment? No * Can the patient safely return to the preadmission environment? Yes * Has this patient been hospitalized within the prior 30 days at any hospital? No Last DP export: 02/25/20 2:44 p Patient Name: NELIA HAGEN Page [id number] at 1556 All edits/amendments must be made on the electronic document DICTATION DATE: 02/25/201554 MARTIAL ARTS INSTRUCTOR: MOISE 02/25/201554 RPT#: [id number] DC DATE: STATUS: ADM IN [facility] [address] [place] [address] END OF REPORT
--- NOTE | 2020-02-25 16:17 | NUR ---
0800-ASSISTED TO BATHROOM. STEADY GAIT.
--- NOTE | 2020-02-25 16:18 | NUR ---
1400- PT DC HOME. AWAITING RIDE HOME FROM FAMILY MEMBER THAT WILL BE HERE AFTER HER SHIFT.
--- NOTE | 2020-02-25 17:39 | NUR ---
BP 178/76 LUE. 194/[address] AMBROSIO. REC'D ORDERS TO GIVE 2100 HOUR LOPRESSOR NOW AND NITRO PATCH ORDER RECEIVED.
--- NOTE | 2020-02-25 19:15 | NUR ---
Report received and care assumed. Received patient sitting up on side of bed. Awake alert and oriented x 4. Assessment completed per flow sheet with no acute distress observed. Monitors connected to patient with alarms set. VSS. Continues hypertensive. 20 Gauge IV initiated LFA . Chelsea well. Call light in reach and able to utilize to make needs known.
--- NOTE | 2020-02-25 19:16 | NUR ---
DR AMBROSIO CALLED TO CK ON PT. DC HELD DUE TO BP HIGH. NEW ORDERS TO HOLD DC AND GIVE LASIX. FAMILY NOTIFIED.
--- NOTE | 2020-02-25 23:00 | NUR ---
AWAKE AND ALERT. UP TO BATHROOM FREQUENTLY, UP AD MEL. REASSESSMENT COMPLETED PER FLOW SHEET WITH NO ACUTE DISTRESS OBSERVED. VSS. CALL LIGHT IN REACH
[2020-02-26] VITALS (29 sets, daily range): BP systolic 96–197; BP diastolic 53–96
--- NOTE | 2020-02-26 01:00 | NUR ---
RESTING WITH EYES CLOSED. 02 SAT 88% ON RA. AWAKENED, INSTRUCTED TO USE I.S/ COUGH AND DEEP BREATHE. 02 SAT UP TO 94% ON RA
--- NOTE | 2020-02-26 03:00 | NUR ---
RESTING WITH EYES CLOSED, EASILY ROUSED AND ALERT. REASSESSMENT COMPLETED PER FLOW SHEET WITH NO ACUTE DISTRESS OBSERVED. VSS. CALL LIGHT IN REACH
--- NOTE | 2020-02-26 05:00 | NUR ---
RESTING WITH EYES CLOSED, EASILY ROUSED AND ALERT. VSS. CALL LIGHT IN REACH
[2020-02-26] MEDS ORDERED: NITRO-DUR0.6 MG TRANSDERM (10:11)
[2020-02-26] MEDS ORDERED: CATAPRES0.1 MG PO (12:06)
--- NOTE | 2020-02-26 15:26 | NUR ---
0730-RECIEEVD AWAKE AND ALERT-L NECK INCISION SITE-NOTED SMALL FIRM HEMATOMA TO UPPER PART OF INCISION-NO DIFFICULTY SWALLOWING-NO TRACHEAL DEVIATION-SANTOS =STRONG-FACIAL SYMMETRICAL 1030-DR AMBROSIO AT BEDSIDE-NIBP REPEATED WHILE AT BEDSIDE-164/80-IN BOTH ARMS CONTINUE TO MONITOR-L PERIPHERAL SALINE LOCK D/C'D 1100-NIBP INCREASED-TO 174/89-DR AMBROSIO IN UNIT AND MADE AWARE-ORDER RECIEVED AND [id number] 198/98-DISCHARGE HELD-0.05PO CLONIDINE GIVEN ORDERED-MED TEACHING DONE BY COSMETIC MANAGER-EXPLAINED NEED TO REMAIN IN HOSPITAL- 1200-ASSISTED PT TO BED 1345-NOTED NIBP DECREASED TO 98/64-NTG PATCH REMOVED AT THIS TIME-DR AMBROSIO NOTIFIED-ORDER RECIEVD AND NOTED 1500-NIBP 128/60-NTG PATCH PLACED BACK ON PT
--- NOTE | 2020-02-26 18:40 | NUR ---
DR AMBROSIO CALLED UNIT FOR UPDATE-DIRECTION RECIEVED-CLONIDINE 0.05 GIVEN
--- NOTE | 2020-02-26 19:10 | NUR ---
REC'D PT SITTING UP IN BED READING PAPER ON ROOM AIR, AWAKE, ALERT, AND ORIENTED X 4, LEFT NECK INCISION SLIGHTLY SWOLLEN WITH FIRM AREA NOTED, MD AWARE, OPEN TO AIR, LEFT UPPER CHEST INCISION TO PREVIOUS CHRISTIAN SITE CDI, BILAT TEDS AND SCDS, PT DENIES PAIN OR NEEDS, SR UP X 2, CALL LIGHT IN REACH.
--- NOTE | 2020-02-26 21:20 | NUR ---
EVENING MEDS GIVEN ORDERED, PT REQUESTING SNACK AND CUP OF ICE, ICE PROVIDED ALONG WITH LEFTY CRACKERS AND PEANUT BUTTER, PT DENIES FURTHER NEEDS, SR UP X 2, BED IN LOW POSITION.
--- NOTE | 2020-02-26 23:30 | NUR ---
REASSESSMENT COMPLETED, NO CHANGES IN STATUS AT THIS TIME, VSS, WILL CONT TO MONITOR FOR CHANGES.
[2020-02-27] VITALS (12 sets, daily range): BP systolic 111–150; BP diastolic 57–80
--- NOTE | 2020-02-27 01:30 | NUR ---
NO CHANGES IN STATUS AT THIS TIME.
--- NOTE | 2020-02-27 04:00 | NUR ---
NO CHANGES IN STATUS AT THIS TIME, BP 131/68, PT RESTING IN BED EYES CLOSED RESP EVEN AND UNLABORED, VSS.
--- NOTE | 2020-02-27 06:30 | NUR ---
AM MEDS GIVEN, PT DENIES NEEDS, BED IN LOW POSITION, CALL LIGHT AND BS TABLE IN REACH.
--- NOTE | 2020-02-27 13:14 | NUR ---
0730-RECIEVED AWAKE AND ALERT-UP IN CHAIR-SANTOS EQUAL AND STRONG
--- NOTE | 2020-02-28 08:39 | MORECARE ---
CASE MANAGEMENT DISCHARGE SUMMARY PATIENT: NELIA HAGEN UNIT: [id number] ADM DATE: 02/23/20 AGE: 59 : 58 SEX: F ROOM/BED: [facility] AUTHOR: MARY,DOC PHYSICIAN: REFERRING PHYSICIAN: JAMIE AMBROSIO MD DATE OF SERVICE: 02/28/20 Discharge Plan Patient Name: NELIA HAGEN Facility: [facility]:[place] : 1960 Planned Disposition: Home Anticipated Discharge Date: Discharge Date: 02/27/2020 Expected LOS: Initial Reviewer: [email or web address] Initial Review Date: 02/24/2020 Generated: 02/28/20 9:38 am Comments DCP- Discharge Planning Updated by [email or web address]: Carmen Sheppard on 02/25/20 2:[address] LATE ENTRY 02/24/20 Patient Name: NELIA HAGEN Admission Status: Elective Accout number: [id number] Admission Date: 02-23-2020 : 1960 Admission Diagnosis:OCCLUSION AND STENOSIS OF LEFT CAROTID ARTERY Attending: JAMIE AMRBOSIO Current LOS: 2 Anticipated DC Date: Planned Disposition: Home Primary Insurance: [place] [employer] [place] Discharge Planning Comments: CM met with patient at bedside about discharge planning /needs. Patient states she lives alone. Patient states she plans to discharge to her home. States she will have family transport her home upon discharge. Denies need for home health or other community resource needs. States home environment is safe. Denies any discharge needs or concerns at this time. CM will continue to follow and assist as needed with discharge planning / needs. Crown Attacher: Carmen Sheppard DCPIA - Discharge Planning Initial Assessment Updated by [email or web address]: Carmen Sheppard on 02/25/20 3:43 pm * Is the patient Alert and Oriented? Yes * How many steps to enter\exit or inside your home? * PCP CLAUDIA HORTON * Pharmacy [facility] * Preadmission Environment Home Alone * ADLs Independent * Equipment None * List name and contact numbers for known caregivers / representatives who currently or will assist patient after discharge: CELIA GARCIA [phone] * Verbal permission to speak to the caregivers and representatives has been obtained from the patient. Yes * Community resources currently utilized None * Additional services required to return to the preadmission environment? No * Can the patient safely return to the preadmission environment? Yes * Has this patient been hospitalized within the prior 30 days at any hospital? No Last DP export: 02/25/20 2:56 p Patient Name: NELIA HAGEN Page 10564 at 0839 All edits/amendments must be made on the electronic document DICTATION DATE: 02/28/20837 TACTICAL AIR CONTROL PARTY MANAGER: DM 02/28/20837 RPT#: [id number] DC DATE:02/27/20 STATUS: DIS IN [facility] [address] [place] [address] END OF REPORT
== END 2020-02-27 13:00 | disposition home or self-care (01) | DRG 39 ==
LOC: D.SDCHOLD 16:30 → D.CVICU 02-23 08:00 → D.SDCHOLD 02-23 08:00 → D.CVICU 02-23 16:18
PROVIDERS: ADMIT Internal Medicine Cardiovascular Disease; ATTEND Internal Medicine Cardiovascular Disease
PROC: 03UL0KZ Supplement Left Internal Carotid Artery with Nonautologous Tissue Substitute, Open Approach (ICD-10-PCS; 2020-02-23)
PROC: 03CL0ZZ Extirpation of Matter from Left Internal Carotid Artery, Open Approach (ICD-10-PCS; principal; 2020-02-23 12:30)
DX: I65.22 Occlusion and stenosis of left carotid artery (principal); I10 Essential (primary) hypertension; I25.10 Atherosclerotic heart disease of native coronary artery without angina pectoris; I70.209 Unspecified atherosclerosis of native arteries of extremities, unspecified extremity

== ENCOUNTER → 2021-03-05 09:11 | Outpatient (CLI) | payer BC ==
[2020-02-23 17:32] VITALS: BMI 30.3
[~2021-03-05 09:11] MED LIST changes: +CATAPRES0.1 MG PO; +NITRO-DUR0.6 MG TRANSDERM
== END | disposition home or self-care (01) ==
LOC: D.US 09:11
PROVIDERS: ATTEND Internal Medicine Interventional Cardiology
DX: I65.29 Occlusion and stenosis of unspecified carotid artery (principal)

== ENCOUNTER → 2021-03-22 08:58 | Outpatient (CLI) | payer MEDICAID ==
[2020-02-23 17:32] VITALS: BMI 30.3
--- NOTE | 2021-03-23 09:25 | ST ---
PATIENT:NELIA HAGEN MEDICAL RECORD: [id number] SEX: F LOCATION:[facility] ORDER #: ADMISSION DATE: 03/22/21 AGE OF PATIENT: 60 REFERRING PHYSICIAN: INTERPRETING PHYSICIAN: DONALDO RIVERA MD DATE OF SERVICE: 03/22/2021 PROCEDURE: Nuclear stress test. FINDINGS: Gated is normal with normal wall motion. Normal EF, calculated EF 60%. SPECT IMAGING: Spect imaging short axis view shows a fixed defect in the anterior apex. There is a reversible defect along the mid inferior wall down to the inferior apex. A horizontal axis confirmed a fixed anterior apical defect with reversibility from the mid inferior wall down to the inferior apex. Vertical axis really shows good uptake along the lateral wall and septum. FINAL IMPRESSION: 1. Normal gated with normal wall motion, EF 60%. 2. SPECT imaging with a fixed anterior defect and a reversible defect along the anterior wall. FINAL RECOMMENDATIONS: This static scan is consistent with a previous myocardial infarction as well as ongoing myocardial ischemia. Consider diagnostic angiography if clinically indicated. TRANSINT:[id number] Voice Confirmation ID: [id number] DOCUMENT ID: [id number] DONALDO RIVERA MD at 0925 CC: [id number] DICTATION DATE: 03/22/21 1657 BLOOD BANK BUSINESS MANAGER: 03/23/21 0748 [facility] CLI 03/22/21 [address] [place] [address]
== END | disposition home or self-care (01) ==
LOC: D.HCCARDIO 08:58
PROVIDERS: ATTEND Internal Medicine Interventional Cardiology
DX: I20.8 Other forms of angina pectoris (principal)

== ENCOUNTER 2021-03-29 11:35 | Day surgery (SDC) | payer BC ==
[~2021-03-29] VITALS: Ht 167.6 cm; Wt 89.4 kg
--- NOTE | ~2021-03-29 | HEMODYNAMI ---
PATIENT:NELIA HAGEN MEDICAL RECORD: [id number] : 58 LOCATION:[facility] ADMISSION DATE: 03/29/21 Generatedon:114:23 Patient name: NELIA HAGEN Patient #: [id number] : 1960 Date of study: 03/29/2021 Page: Of Hemodynamic Procedure Report Patient Data Patient Demographics Procedure consent was obtained First Name: NELIA Gender: Female Last Name: HIEU : 1960 Middle Initial: H Age: 60 year(s) Patient #: [id number] Race: SSN: [id number] Additional ID: [id number] Contact details Address: [address] [place] [address] State: [place] City: [place] Zip code: [address] Past Medical History History of disease Date Diagnosis Comments CAD Allergies Allergen Reaction Date Comments Reported Other allergy 03/29/2021 PCN, ZITHROMAX Admission Admission Data Admission Date: 03/29/2021 Admission Time: 11:35 Arrival Date: 03/29/2021 Arrival Time: 0:00 Height (in.): 65.75 BSA: 1.98 (m2) Height (cm.): 167 BMI: 31.91 (kg/m2) Weight (lbs.): 196.21 Weight (kg.): 89 Lab Results Lab Result Date: 03/29/2021 Lab Result Time: 0:00 Biochemistry Name Units Result Min Max BUN mg/dl 19 --(----)*- 7 18 Creatinine mg/dl 0.7 --(*---)-- 0.6 1.3 Procedure Procedure Types Cath Procedure Diagnostic Procedure LHC LHC w/Coronaries w/Grafts Sedation Charges Moderate Sedation 25-39 minutes Procedure Description Procedure Date Procedure Date: 03/29/2021 Procedure Start Time: 14:03 Procedure End Time: 14:22 Procedure Staff Name Function Juan Antonio Benoit MD Performing Physician Shelbi Marroquin RT Jeanna Ibarra RT Monitor Bianca Douglas RN Nurse Procedure Data Cath Procedure Fluoroscopy Diagnostic fluoroscopy Total fluoroscopy Time: 2.5 time: 2.5 min min Diagnostic fluoroscopy Total fluoroscopy dose: 392 dose: 392 mGy mGy Contrast Material Contrast Material Type Amount (ml) Isovue 300 68 Entry Location Entry Primary Successful Side Size Upsize Upsize Entry Closure Succes sful Closure Location (Fr) 1 (Fr) 2 (Fr) Remarks Device Remarks Femoral Right 5 Fr Exoseal artery Estimated blood loss: 5 ml Diagnostic catheters Device Type Used For End Catheter Placement MULTIPACK JL 4.0 5Fr Left Coronary catheter Angiography MULTIPACK 3DRC 5Fr Right Coronary catheter Angiography MULTIPACK Pigtail 5 Fr LV Angiography catheter Procedure Complications No complications Procedure Medications Medication Administration Route Dosage Oxygen etCO2 Nasal cannula 2 l/min Heparin Flush Bag added to field 2 bags (1000units/500ml NS) Lidocaine 2% added to field 20 0.9% NaCl I.V. 100 ml/hr Fentanyl I.V. 50 mcg Versed I.V. 1 mg Fentanyl 25 mcg Versed I.V. 0.5 mg Hemodynamics Rest BSA: 1.98 (m2) O2 Consumption: Estimated: 179.81 (ml/min) O2 Consumption indexed : Estimated:90.81 (ml/min/m) Heart Rate: 60 (bpm) Pressure Samples Time Site Value (mmHg) Purpose Heart Use Rate(bpm) 14:15 LV 138/10,12 Snapshot 66 Snapshots Pre Cath Intra NCS Post Cath Vital Signs Time Heart Resp SPO2 etCO2 NIBP (mmHg) Rhythm Pain Sedation Rate (ipm) (%) (mmHg) Status Level (bpm) 13:43:56 63 13 100 34.5 166/81(136) NSR 0 (11) 10(A) , No pain 13:48:31 64 18 100 38.2 154/74(141) NSR 0 (11) 10(A) , No pain 13:52:57 64 19 100 34.5 136/71(115) NSR 0 (11) 9(A) , No pain 13:59:01 63 13 99 41.2 136/65(88) NSR 0 (11) 9(A) , No pain 14:03:26 64 20 99 37.5 137/71(109) NSR 0 (11) 9(A) , No pain 14:07:52 66 16 99 38.2 144/71(113) NSR 0 (11) 9(A) , No pain 14:12:20 62 20 98 38.9 139/69(102) NSR 0 (11) 9(A) , No pain 14:16:44 65 22 99 36.7 132/66(111) NSR 0 (11) 9(A) , No pain 14:21:13 64 23 99 34.4 129/62(106) NSR 0 (11) 9(A) , No pain Medications Time Medication Route Dose Verified Delivered Reason Notes Eff ectiveness by by 13:47:43 Oxygen etCO2 2 Bianca Bianca for low 02 Nasal l/min Stella Douglas sats cannula RN RN 13:47:53 Heparin Flush added 2 Bianca Bianca used for Bag to bags Stella Douglas procedure (1000units/500ml field RN RN NS) 13:48:18 Lidocaine 2% added 20ml Bianca Bianca for local to vial Stella Douglas anesthetic field RN RN 13:48:29 0.9% NaCl I.V. 100 Bianca Bianca Per ml/hr Stella Douglas, physician RN RN 13:49:27 Fentanyl I.V. 50 Bianca Bianca for mcg Stella Douglas, sedation RN RN 13:49:32 Versed I.V. 1 mg Bianca Bianca for Douglas, Douglas, sedation RN RN 14:04:19 Fentanyl 25 Bianca Bianca for mcg Stella, Douglas, sedation RN RN 14:04:24 Versed I.V. 0.5 Bianca Bianca for mg Stella Douglas, sedation RN contact assembler Log Time Note 13:23:43 Informed consent obtained and on chart 13:24:20 Procedure Status Elective Heart Cath (OP). 13:24:22 Bianca Douglas RN sent for patient. Start room use. 13:28:42 Time tracking: Regular hours (M-F 7:00 - 5:00) 13:28:45 Plan of Care:Hemodynamics will remain stable., Cardiac rhythm will remain stable., Comfort level will be maintained., Respiratory function will remain adequate., Patient/ family verbilizes understanding of procedure., Procedure tolerated without complication., Recovers from procedure without complications.. 13:29:48 H&P Date Dictated: 03/15/2021 Within 30 days and on chart., H&P Addendum completed by physician on day of procedure. (MUST COMPLETE FOR ALL OUTPATIENTS). 13:29:59 Patient allergic to Other allergyPCN, ZITHROMAX 13:30:35 Patient Weight : 196.21 lbs 13:30:45 Patient Height : 65.75 inches 13:30:49 Arrival Date: 03/29/2021 12:00:00 AM 13:37:08 Patient received from Pre/Post Procedure Room to CCL 1 Alert and oriented. Tansferred to table in Supine position. 13:37:09 Correct patient and procedure confirmed by team. 13:37:09 Warm blankets applied, and gigi hugger turned on for patient comfort. 13:37:10 ECG and BP/O2 sat monitors applied to patient. 13:37:50 Pre-op teaching completed and patient verbalized understanding. 13:37:50 Pre-procedure instructions explained to patient. 13:42:30 Vital chart was started 13:42:31 Baseline sample Acquired. 13:42:34 Rhythm: sinus rhythm 13:42:35 Full Disclosure recording started 13:42:38 Family in patients room. 13:42:41 Patient NPO since Midnight. 13:42:44 Is the patient allergic to Iodine/contrast media? No. 13:42:46 Is patient on blood thinner?Yes 13:42:49 ACC The patient was administered the following blood thiners within the last 24 hours: ACCPlavix 13:43:06 Patient diabetic? Yes. 13:43:08 If diabetic: On Metformin? Yes 13:43:11 If on Metformin: Last Dose? 03/28/2021 13:43:13 ----Pre-sedation anethsthesia assessment.---- 13:43:16 Previous problem with sedation/anesthesia? No ? 13:43:21 Snore? Yes 13:43:23 Sleep apnea? No 13:43:24 Deviated septum? No 13:43:26 Opens mouth fully? Yes 13:43:28 Sticks out tongue? Yes 13:43:30 Airway obstruction? No ? 13:43:32 Dentures? No ? 13:43:36 Pre procedure: right dorsailis pedis pulse 1+ Palpable, but thready & weak; easily obliterated 13:43:39 Pre procedure: right femoral pulse 2+ Normal; easily identifiable; not easily obliterated 13:43:42 Patient pain scale 0/10 ?. 13:43:49 IV patent on arrival in left antecubital with 0.9% NaCl at [facility]. 13:46:40 Lab Result : Creatinine 0.7 mg/dl 13:46:40 Lab Result : BUN 19 mg/dl 13:46:43 Lab results completed and on chart. 13:46:49 Risk of Mortality: .1 13:46:54 Risk of blood transfusion: 0.7 13:46:58 Risk of DAHLIA: 0.4 13:47:01 Right groin area was prepped with chlora-prep and draped in sterile fashion 13:47:02 Sharps counted by scrub and verified by R.N. 13:47:02 Alarms reviewed by R. N. 13:47:03 Physician arrived 13:47:04 Final Timeout: patient, procedure, and site verified with staff and physician. All members of the team are in agreement. 13:47:04 --------ALL STOP TIME OUT------ 13:47:06 Right groin site verified by team. 13:47:10 Fire Safety Assessment: A--An alcohol-based skin anteseptic being used preoperatively., C--Open oxygen or nitrous oxide is being used., D--An ESU, laser, or fiber-optic light is being used. 13:47:13 Physical assessment completed. ASA score P 2 - A patient with mild systemic disease as per Juan Antonio Benoit MD. 13:47:19 1) 90+ Normal kidney functon but urine findings or structural abnormalities or genetic trait point to kidney disease. 13:47:22 Maximum allowable contrast dose (3.7 X eGFR X 0.75)250 ml. 13:47:26 Sedation plan: IV Moderate Sedation Medication:Versed, Fentanyl 13:47:43 Oxygen 2 l/min etCO2 Nasal cannula was administered by Bianca Douglas RN; for low 02 sats; Verbal order read back and verified. 13:47:53 Heparin Flush Bag (1000units/500ml NS) 2 bags added to field was administered by Bianca Douglas RN; used for procedure; Verbal order read back and verified. 13:48:18 Lidocaine 2% 20ml vial added to field was administered by Bianca Douglas RN; for local anesthetic; Verbal order read back and verified. 13:48:29 0.9% NaCl 100 ml/hr I.V. was administered by Bianca Douglas RN; Per physician; Verbal order read back and verified. 13:49:27 Fentanyl 50 mcg I.V. was administered by Bianca Douglas RN; for sedation; Verbal order read back and verified. 13:49:32 Versed 1 mg I.V. was administered by Bianca Douglas RN; for sedation; Verbal order read back and verified. 13:52:41 Zero performed for pressure channel P1 13:56:49 Full Disclosure recording stopped 13:57:47 Vital chart was started 13:58:35 Baseline sample Acquired. 14:02:45 Procedure type changed to Cath procedure, Diagnostic procedure, LHC, LHC w/Coronaries w/Grafts, Sedation Charges, Moderate Sedation 25-39 minutes 14:03:24 Procedure started. 14:03:24 Full Disclosure recording started 14:03:34 Local anesthetic to right femoral artery with Lidocaine 2% by Juan Antonio Benoit MD.INITIAL ACCESS ONLY 14:03:42 A 5 Fr sheath was inserted into the Right Femoral artery 14:04:19 Fentanyl 25 mcg was administered by Bianca Douglas RN; for sedation; Verbal order read back and verified. 14:04:24 Versed 0.5 mg I.V. was administered by Bianca Douglas RN; for sedation; Verbal order read back and verified. 14:06:51 Use device set Femoral Dx 14:06:58 ACIST Syringe (57579) opened to sterile field. 14:06:59 Bag Decanter (2002) opened to sterile field. 14:07:01 Medline Cath Pack ([id number]) opened to sterile field. 14:07:01 ACIST Hand Control (44100) opened to sterile field. 14:07:02 ACIST Manifold (07717) opened to sterile field. 14:07:03 DIAGNOSTIC Multipack 5Fr catheter set ([id number]) opened to sterile field. 14:07:05 Tegaderm 4 x 4 (1626W) opened to sterile field. 14:07:07 SHEATH 5FR Dyke (TLZ014) opened to sterile field. 14:07:08 EMERALD Guide Wire (960-331) opened to sterile field. 14:08:41 A MULTIPACK JL 4.0 5Fr catheter was advanced over the wire and used for Left Coronary Angiography. 14:09:46 LCA angiography performed. 14:10:47 Catheter removed. 14:11:00 A MULTIPACK 3DRC 5Fr catheter was advanced over the wire and used for Right Coronary Angiography. 14:11:23 RCA angiography performed. 14:12:47 SVG to Circ angiography performed. 14:12:51 SVG to LAD angiography performed. 14:12:54 SVG to RCA angiography performed. 14:13:21 AMES to LAD angiography performed. 14:14:54 Catheter removed. 14:15:02 A MULTIPACK Pigtail 5 Fr catheter was advanced over the wire and used for LV Angiography. 14:16:31 RCA angiography performed. 14:16:33 LV gram done using ANGELES 14:16:35 LV hemodynamics recorded. 14:16:38 Injector settings: Ml/sec: 10, Volume: 20, 14:17:32 EF : 50 % 14:17:35 Catheter removed. 14:17:45 Contrast amount:Isovue 300 68ml. 14:17:53 Sheath removed intact; hemostasis achieved with Exoseal to the Right Femoral artery. 14:17:58 Procedure ended.(Physican Out) 14:18:28 Fluoroscopy time 02.50 minutes. 14:18:37 Fluoroscopy dose: 392 mGy 14:18:37 Flurop Dose total: 392 14:18:44 Dose Area Product 45615 mGy/cm. 14:18:46 Sharps counted by scrub and verified by R.N. 14:18:50 Insertion/operative site no bleeding no hematoma. 14:18:53 Post-op/insertion site Right Femoral artery dressed using a 4 x 4 and Tegaderm. 14:18:57 Post right femoral artery:stable 14:18:59 Post Procedure Pulses reassessed and unchanged 14:19:02 Post procedure: right dorsailis pedis pulse 1+ Palpable, but thready & weak; easily obliterated. 14:19:06 Post-procedure physical assessment completed. ASA score P 2 - A patient with mild systemic disease as per Juan Antonio Benoit MD. 14:19:09 Post procedure rhythm: unchanged. 14:19:12 Estimated blood loss: 5 ml 14:19:15 Post procedure instruction explained to patient.Patient verbalizes understanding. 14:19:17 Procedure and supply charges have been captured, reviewed, submitted and are correct. 14:19:20 EXOSEAL 5Fr (EX500) opened to sterile field. 14:21:27 Procedure Complication : No complications 14:21:36 Vital chart was stopped 14:21:43 [facility] Findings: MVD- MD will discuss options w/ pt 14:21:47 Operative report dictated upon procedure completion. 14:21:48 See physician's report for complete and final results. 14:21:57 Report given to Pre/Post Procedure Room. 14:22:03 Patient transfered to Pre/Post Procedure Room with Stretcher. 14:22:05 Procedure ended. 14:22:05 Full Disclosure recording stopped 14:22:08 End room use (Document Last) 14:22:21 End room use (Document Last) 14:22:57 End room use (Document Last) Device Usage Item Name Manufacture Quantity Catalog Hospital Part Current Minimal L ot# / Number Charge Number Stock Stock Serial# Code ACIST Acist 1 [id number] 322190 243164 20 Syringe Medical (62864) Systems Inc Bag Microtek 1 2001S 182868 00022 053484 5 Decanter Medical Inc. () Medline Medline 1 [id number] 292438 36585 320425 5 Cath Pack ([id number]) ACIST Hand Acist 1 71679 628926 359549 549410 5 Control Medical (06994) Systems Inc ACIST Acist 1 33880 733060 658879 326534 5 Manifold Medical (24310) Systems Inc DIAGNOSTIC Cardinal 1 TN1295 175166 29155 171113 30 Multipack LockPath[employer] Inc. 5Fr catheter set (YF8494) Tegaderm 4 3M 1 1626W 803405 517809 557722 5 x 4 (1626W) SHEATH 5FR Terumo 1 DDD977 201852 235049 872254 5 Dyke (QDN048) EMERALD Cardinal 1 502-455 872653 824394 187077 5 Guide Wire [facility] (502-167) MULTIPACK Cardinal 1 946167 5 JL 4.0 5Fr Health catheter MULTIPACK Cardinal 1 848151 5 3DRC 5Fr Health catheter MULTIPACK Cardinal 1 886294 5 Pigtail 5 Health Fr catheter EXOSEAL 5Fr Cardinal 1 EX500 015523 071394 558578 10 (EX500) Health Signature Audit [place] Stage Time Signature Unsigned Intra-Procedure 03/29/2021 Grayson Ibarra RT(R) 2:22:21 PM Intra-Procedure 03/29/2021 Bianca Douglas, 2:22:57 PM RN Intra-Procedure 03/29/2021 Juan Antonio Deal 2:23:43 PM Azar CLARK [address] [address]
[2021-03-29] MEDS ORDERED: PROTONIX40 MG PO (12:41)
[2021-03-29] MEDS ORDERED: NORVASC10 MG PO (12:42)
[2021-03-29] MEDS ORDERED: CENTRUM SILVER1 EAC3 PO (12:47)
[2021-03-29] MEDS ORDERED: CLONIDINE HCL0.1 MG PO (12:48)
[2021-03-29 12:49] VITALS: BP 94/74; Ht 167.6 cm; Wt 89.4 kg
[2021-03-29 13:19] LABS: BASOPHILS 0.9 % (0-2); HEMATOCRIT 38.9 % (36.0-48.0); HEMOGLOBIN 12.5 g/dL (12-16); LYMPHOCYTES 32.1 % (15-50); MCHC 32.2 g/dL (31.0-37.0); MCV 86.9 fL (80.0-100.0); MEAN PLATELET VOLUME 10.1 fL (7.4-10.4); MONOCYTES 6.6 % (2-11); NEUTROPHILS 57.4 % (40-80); PLATELET COUNT 185 10x3/uL (130-400); RBC 4.47 10x6/uL (4.00-5.40); RDW 14.2 % (11.5-14.5); WBC 8.1 10x3/uL (4.8-10.8)
[2021-03-29 13:20] LABS: ALT (SGPT) 29 U/L (10-68); CALCIUM 9.5 mg/dL (8.5-10.1); CARBON DIOXIDE 28.4 mmol/L (21.0-32.0); CHOL - HDL RATIO 2.2 ratio (2.3-4.1); CHOLESTEROL, TOTAL 173 mg/dL (0-200); CREATININE - SERUM 0.7 mg/dL (0.6-1.3); GLUCOSE 94 mg/dL (74-106); HDL CHOLESTEROL 80 mg/dL (32-96); LDL CHOLESTEROL 73 mg/dL (0-100); LDL-HDL RATIO 0.9 ratio (1.5-3.5); TRIGLYCERIDE 104 mg/dL (30-200); UREA NITROGEN 19 mg/dL (7-18); eGFR NON AFRICAN AMERICAN 90 mL/min (90-120)
[2021-03-29 13:30] LABS: CALC OSMOLALITY 279 mosm/kg (275-300); CHLORIDE - SERUM 102 mmol/L (98-107); POTASSIUM - SERUM 4.5 mmol/L (3.5-5.1); SODIUM 139 mmol/L (136-145)
--- NOTE | 2021-03-29 14:30 | NUR ---
PT ARRIVES TO ROOM 3 VIA STRETCHER S/P HEART CATH. SEE RN ASSESMENT. MONITORS PLACED AND ALARMS ON. IV INFUSING PER ORDERS, DENIES PAIN OR NEEDS, CALL LIGHT WITHIN REACH
--- NOTE | 2021-03-29 14:45 | NUR ---
DR GARRETT AT BEDSIDE TO SEE PT AND FAMILY
--- NOTE | 2021-03-29 14:45 | NUR ---
RIGHT GROIN SOFT WITHOUT OOZING OR BLEEDING OPSITE C/D/I, EXTREMITY PINK AND WARM , PULSES PALPLABLE, CAP REFILL WNL, PT DENIES PAIN OR NEEDS, VSS, NSR WITH NO ECTOPY, IV INFUSING PER ORDERS, CALL LIGHT WITHIN REACH
--- NOTE | 2021-03-29 15:00 | NUR ---
RIGHT GROIN STABLE, NO OOZING OR BLEEDING , NO PALPABLE HEMATOMA, OPSITE C/D/I, EXTREMIYT PINK AND WARM AND PULSES PALPALBE, CAP REFILL WNL, PT DENIES PAIN OR NEEDS, VSS, NSR, IV INFUSING PER ORDERS, CALL LIGHT WITHIN REACH
--- NOTE | 2021-03-29 15:30 | NUR ---
RIGHT GROIN SOFT WITHOUT OOZING OR BLEEDING , NO PALPALBE HEMATOMA, EXTREMITY WARM AND PEDAL PULSE PALPABLE, CAP REFILL WNL, DENIES PAIN OR NEEDS, PT PLACED IN SEMI FOWLERS POSITION , SIPS OF WATER GIVEN , CALL LIGHT WITHIN REACH
--- NOTE | 2021-03-29 16:00 | NUR ---
DISCHARGE TEACHING STARTED AND COMPLETED, PT AND FAMILY MEMBER VERBALIZED UNDERSTANDING, QUESTIONS AND CONCERNS ADDRESSED. RIGHT GROIN SOFT WITHOUT OOZING OR BLEEDING NO PALPABLE HEMATOMA, EXTREMITY PINK AND WARM PEDAL PULSE PALPABLE, DENIES PAIN OR NEEDS, 22G IV REMOVED CATHETER INTACT DRESSING APPLIED
--- NOTE | 2021-03-29 16:15 | NUR ---
PT UP AND DRESSEED ASSISTED BY FAMILY, AMBULATES TO BATHROOM AND VOIDS WITHOUT DIFFICULTY, RIGHT GROINS REMAINS STABLE WITHOUT OOZING OR BLEEDING AND NO PALPABLE HEMATOMA.
--- NOTE | 2021-03-29 16:30 | NUR ---
PT TAKEN TO FAMILY CAR VIA WHEELCHAIR WITH OUT QUESTIONS OR NEEDS
--- NOTE | 2021-03-30 11:18 | OP ---
PATIENT NAME: NELIA HAGEN MEDICAL RECORD: [id number] :58 LOCATION:[facility] ADMISSION DATE: SURGEON: DONALDO RIVERA MD DATE OF OPERATION: 03/29/2021 PROCEDURES: Left heart catheterization, selective coronary angiography, right femoral artery approach. CATHETERS: A 5-Persian sheath, 5/4 left and right Abraham, and 5/4 pig. The procedure was well tolerated. The patient was returned to the vega. Sheath was removed. ExoSeal device placed. FINDINGS: Left ventriculography in 30-degree ANGELES view shows basically inferior basal and marked hypokinesis. Overall function is preserved, however, 55%. CORONARY ANATOMY: Left main: Left main was totally occluded as are the LAD and circumflex. Right coronary again is totally occluded. BYPASS GRAFTS 1. AMES to LAD is widely patent throughout its course. No evidence of post-anastomotic stenosis and fills the right in left to right fashion. 2. Saphenous vein graft. This is a skip graft to OM1 and 2. The graft itself is widely patent and no evidence post-anastomotic stenosis and affects fills the right again via left to right collaterals. IMPRESSION: Severe [place] coronary artery disease, but with excellent revascularization via BiPAP grafting. The right does fill via left to right collaterals. Continue medical management and risk factor modification. TRANSINT:[id number] Voice Confirmation ID: [id number] DOCUMENT ID: [id number] DONALDO RIVERA MD at 1118 CC: [id number] DICTATION DATE: 03/29/21 1430 PROCUREMENT SERVICES MANAGER: 03/29/211916 [facility] 03/29/21 [facility] [address] [place] [address]
== END 2021-03-29 16:30 | disposition home or self-care (01) ==
LOC: D.CATH 11:35
PROVIDERS: ATTEND Internal Medicine Interventional Cardiology
DX: I20.8 Other forms of angina pectoris (principal); R94.39 Abnormal result of other cardiovascular function study; I05.0 Rheumatic mitral stenosis; I67.9 Cerebrovascular disease, unspecified; I10 Essential (primary) hypertension; I73.9 Peripheral vascular disease, unspecified